=== PATIENT | female | born 1985 | race American Indian/Alaskan Native ===

== ENCOUNTER 2020-12-14 22:07 | Emergency (ER) | payer SELFPAY ==
[2020-12-14 22:21] VITALS: BP 149/89
--- NOTE | 2020-12-14 22:39 | Emergency Department Report ---
ED General Adult HPI - General Chief complaint: Chest Pain Stated complaint: CHEST PAIN x1 DAY Time Seen by Provider: 12/14/20 22:29 Source: patient Mode of arrival: Ambulatory Limitations: No Limitations - History of Present Illness Initial comments: Patient is 35 years old female with history of hypertension. Patient presented to the ER complaining of substernal chest pain. Patient described the pain as a gas feeling sensation. Patient stated that this is been going on for few days. On and off. Patient denied any shortness of breath, cough, fever or chills. She also denied any abdominal pain. No nausea or vomiting. -: days(s) Location: chest - Related Data Allergies Allergy/AdvReac Type Severity Reaction Status Date / Time No Known Allergies Allergy Verified 12/14/20 22:15 ED Review of Systems ROS: Stated complaint: CHEST PAIN x1 DAY Other details as noted in HPI Comment: All other systems reviewed and negative Constitutional: denies: chills, fever Respiratory: denies: cough, shortness of breath, SOB with exertion Cardiovascular: chest pain. denies: palpitations Gastrointestinal: denies: abdominal pain, nausea, vomiting Musculoskeletal: denies: back pain Neurological: denies: headache, weakness, numbness, paresthesias, confusion ED Past Medical Hx - Surgical History Past Surgical History?: Yes Additional Surgical History: gall bladder, ectopic - Social History Smoking Status: Current Every Day Smoker Substance Use Type: None ED Physical Exam - General Limitations: No Limitations General appearance: alert, in no apparent distress - Head Head exam: Present: atraumatic, normocephalic, normal inspection - Eye Eye exam: Present: normal appearance, PERRL - ENT ENT exam: Present: normal exam, normal orophraynx, mucous membranes moist - Neck Neck exam: Present: normal inspection, full ROM. Absent: tenderness, meningismus - Respiratory Respiratory exam: Present: normal lung sounds bilaterally - Cardiovascular Cardiovascular Exam: Present: regular rate, normal rhythm, normal heart sounds - GI/Abdominal GI/Abdominal exam: Present: soft, normal bowel sounds. Absent: distended, tenderness, guarding, rebound, rigid, organomegaly, mass, bruit, pulsatile mass, hernia - Extremities Exam Extremities exam: Present: normal inspection, full ROM, normal capillary refill. Absent: tenderness, pedal edema, calf tenderness - Back Exam Back exam: Present: normal inspection, full ROM. Absent: CVA tenderness (R), CVA tenderness (L) - Neurological Exam Neurological exam: Present: alert, oriented X3, CN II-XII intact, normal gait, reflexes normal. Absent: motor sensory deficit - Psychiatric Psychiatric exam: Present: normal mood - Skin Skin exam: Present: warm, intact, normal color ED Course Vital Signs 12/14/20 22:19 Temperature 99.2 F Pulse Rate 77 Respiratory 18 Rate Blood Pressure 149/89 O2 Sat by Pulse 100 Oximetry ED Medical Decision Making - Lab Data Result diagrams: 12/14/20 23:25 12/14/20 23:25 - EKG Data -: EKG Interpreted by Ks EKG shows normal: sinus rhythm Rate: normal - EKG Data Interpretation: no acute changes - Radiology Data Radiology results: report reviewed - Medical Decision Making Patient is 35 years old female with history of hypertension. Patient presented to the ER complaining of substernal chest pain. Patient described the pain as a gas feeling sensation. Patient stated that this is been going on for few days. On and off. Patient denied any shortness of breath, cough, fever or chills. She also denied any abdominal pain. No nausea or vomiting. EKG is unremarkable. Labs reviewed and is unremarkable including a negative troponin. Chest x-ray is normal. Patient remained stable in the ER with stable vital sign. Patient strongly advised to follow-up with her primary care physician for outpatient cardiac work-up and to return to the ER if she develop any new symptoms. Critical care attestation.: If time is entered above; I have spent that time in minutes in the direct care of this critically ill patient, excluding procedure time. ED Disposition Clinical Impression: Acute chest pain Disposition: HOME / SELF CARE / HOMELESS Is pt being admited?: No Condition: Stable Instructions: Chest Pain (ED), Nonspecific Chest Pain, Adult Referrals: PRIMARY CARE, [Primary Care Provider] - 3-5 Days
--- NOTE | 2020-12-14 23:48 | XRay Report ---
CHEST 2 VIEWS INDICATION / CLINICAL INFORMATION: Chest Pain. COMPARISON: None available. FINDINGS: SUPPORT DEVICES: None. HEART / MEDIASTINUM: No significant abnormality. LUNGS / PLEURA: No significant pulmonary or pleural abnormality. No pneumothorax. ADDITIONAL FINDINGS: No significant additional findings. IMPRESSION: 1. No acute findings. Signer Name: Fred Artis MD Signed: 12/14/2020 11:43 PM Workstation Name: [id number]
[2020-12-15 00:08] LABS: Basophils # (Auto) 0.1 K/mm3 (0.0-0.1); Basophils % (Auto) 1.1 % (0.0-1.8); Eosinophils # (Auto) 0.4 K/mm3 (0.0-0.4); Eosinophils % (Auto) 3.6 % (0.0-4.3); Hematocrit 40.7 % (30.3-42.9); Hemoglobin 13.8 gm/dl (10.1-14.3); Lymphocytes % (Auto) 30.6 % (13.4-35.0); Mean Corpuscular HGB Conc 34 % (30-34); Mean Corpuscular Volume 85 fl (79-97); Monocytes # (Auto) 0.5 K/mm3 (0.0-0.8); Monocytes % (Auto) 5.3 % (0.0-7.3); Platelet Count 325 K/mm3 (140-440); Red Blood Count 4.81 M/mm3 (3.65-5.03); Red Cell Distribution Width 15.4 % (13.2-15.2)
[2020-12-15 00:16] LABS: Blood Urea Nitrogen 13 mg/dL (7-17); Calcium 9.4 mg/dL (8.4-10.2); Hemolysis Index 20
[2020-12-15 00:24] LABS: BUN/Creatinine Ratio 19
--- NOTE | 2020-12-16 11:04 | Electrocardiograph Report ---
[facility] Test Date: 2020-12-14 Test Time: 22:49:50 Pat Name: RAMANDEEP FOSTER Department: Room: Gender: F Deputy [place] Counsel: [place] : 1985 Requested By: VANCE WALDROP Order Number: [id number] Reading MD: Naeem Ruggiero Measurements Intervals [place] Rate: 74 P: 60 MO: 150 QRS: 42 QRSD: 85 T: 25 QT: 396 QTc: 439 Interpretive Statements Sinus rhythm No previous ECG available for comparison Electronically Signed On 12-16-2020 11:03:41 EDT by Naeem Ruggiero
== END 2020-12-15 02:03 | disposition home or self-care (01) ==
LOC: ED 22:07
DX: R07.89 Other chest pain (principal); F17.200 Nicotine dependence, unspecified, uncomplicated
CPT/HCPCS: 36415; 71046; 80048; 83690; 84484; 84703; 85025; 93005; 99283